=== PATIENT | female | born 1975 | race Caucasian/White ===

== ENCOUNTER 2018-04-10 08:33 | Day surgery (SDC) | payer OTHER ==
[~2018-04-10 08:33] MED LIST: ACETAMINOPHEN 325 MG TAB PO; MIDAZOLAM INJ 2 MG/2 ML VIAL (J2250) As Ordered; PHENYLEPHRINE HCL 10 % OPHTH. SOL 5ML OS; PROPARACAINE 0.5% OPHTH SOL 15ML OS; fentaNYL 100 MCG/2 ML INJECTION (J3010) As Ordered
[2018-04-10] MEDS: KETOROLAC 0.5% OPHTH SOLN OS (09:00)
[2018-04-10] MEDS ORDERED: TRIMETHOBENZAMIDE 300 MG CAP PO (09:00)
[2018-04-10] MEDS: CYCLOPENTOLATE 2% OPHTH SOLN 2ML BTL OS (09:04)
[2018-04-10] MEDS: PHENYLEPHRINE 2.5% OPHTH SOL 2ML OS (09:04)
[2018-04-10] MEDS: OFLOXACIN 0.3 % (OCUFLOX) OPTH SOL 5ML OS (09:04)
[2018-04-10] MEDS: TROPICAMIDE 1% OPHTH SOLN 2ML OS (09:04)
[2018-04-10] MEDS: LIDOCAINE 3.5 % 1ML OPHTH TOPICAL GEL OU (09:04)
[2018-04-10] MEDS: POVIDONE-IODINE 5% OPHTH PREP SOL 30ML As Ordered (09:24)
[2018-04-10] MEDS: HEALON DUET PRO(HEALON 10MG/ML 0.55ML & HEALON ENDOCOAT 30MG/ML 0.85ML) As Ordered (09:26)
[2018-04-10] MEDS: BALANCED SALT IRRIGATION SOLUTION 500ML BAG (FOR OR EYE MACHINE) As Ordered (09:26)
[2018-04-10] MEDS: CEFUROXIME 1MG/0.1ML INTRACAMERAL INJ As Ordered (09:26)
[2018-04-10] MEDS: LIDOCAINE 1% SDV 5 ML VIAL As Ordered (09:26)
[2018-04-10] MEDS ORDERED: ACETAMINOPHEN TAB 650MG DOSE (2X325MG) PO (10:00)
[2018-04-10] MEDS ORDERED: LR 1,000 ML IV (10:00)
[2018-04-10] MEDS: AcetaZOLAMIDE 500 MG ER CAP PO (10:09)
== END 2018-04-10 10:25 | disposition home or self-care (01) ==
LOC: M SDC 08:33
DX: H25.12 Age-related nuclear cataract, left eye (principal); K21.9 Gastro-esophageal reflux disease without esophagitis; I34.1 Nonrheumatic mitral (valve) prolapse; F17.200 Nicotine dependence, unspecified, uncomplicated; L30.9 Dermatitis, unspecified; L23.9 Allergic contact dermatitis, unspecified cause; Z88.1 Allergy status to other antibiotic agents; Z88.8 Allergy status to other drugs, medicaments and biological substances; Z79.899 Other long term (current) drug therapy; Z78.0 Asymptomatic menopausal state
CPT/HCPCS: 66984

== ENCOUNTER 2018-05-01 09:22 | Day surgery (SDC) | payer OTHER ==
[~2018-05-01] VITALS: Ht 154.9 cm; Wt 66.0 kg
[~2018-05-01 09:22] MED LIST changes: -ACETAMINOPHEN 325 MG TAB PO; +AMOX500C PO; +BALANCED SALT IRRIGATION SOLUTION 500ML BAG (FOR OR EYE MACHINE) As Ordered ONE; +CEFUROXIME 1MG/0.1ML INTRACAMERAL INJ As Ordered ONE; +CYCLOPENTOLATE 2% OPHTH SOLN 2ML BTL OD ONE; +HEALON DUET PRO(HEALON 10MG/ML 0.55ML & HEALON ENDOCOAT 30MG/ML 0.85ML) As Ordered ONE; +IBUP80TA PO; +LIDOCAINE 1% SDV 5 ML VIAL As Ordered ONE; +LIDOCAINE 3.5 % 1ML OPHTH TOPICAL GEL OU ONE; -MIDAZOLAM INJ 2 MG/2 ML VIAL (J2250) As Ordered; +OFLOXACIN 0.3 % (OCUFLOX) OPTH SOL 5ML OD ONE; +OMEP40CA2 PO; +PHENYLEPHRINE 2.5% OPHTH SOL 2ML OD ONE; +PHENYLEPHRINE HCL 10 % OPHTH. SOL 5ML OD PRN; -PHENYLEPHRINE HCL 10 % OPHTH. SOL 5ML OS; +POVIDONE-IODINE 5% OPHTH PREP SOL 30ML As Ordered ONE; -PROPARACAINE 0.5% OPHTH SOL 15ML OS; +SUDA1TAB3 PO; +TRIA1CR80 TOP; +TROPICAMIDE 1% OPHTH SOLN 2ML OD ONE; -fentaNYL 100 MCG/2 ML INJECTION (J3010) As Ordered
[2018-05-01] MEDS ORDERED: diphenhydrAMINE INJ 50MG/ML VIAL (J1200) IV ONE (11:00)
[2018-05-01 12:08] VITALS: BP 136/78
[2018-05-01] MEDS ORDERED: fentaNYL 100 MCG/2 ML INJECTION (J3010) As Ordered ONE (12:19)
[2018-05-01] MEDS ORDERED: MIDAZOLAM INJ 2 MG/2 ML VIAL (J2250) As Ordered ONE (12:19)
--- NOTE | 2018-05-02 09:41 | RO ---
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 PROCEDURE: Phacoemulsification and posterior chamber intraocular lens implantation and T-wave refractor analysis. The lens used was AU00T0, 22.5 Diopter. SURGEON: Nuvia Gomez MD ROOM SERVICE BELLHOP: ANESTHESIA: Topical with sedation. DESCRIPTION OF PROCEDURE: The patient was prepped and draped in usual fashion. A lid speculum was placed between the lids. The eye was fixated. A stab incision was made into the anterior chamber. 1% nonpreserved lidocaine was instilled, and viscoelastic was instilled. The eye was refixated. A 2.4 mm keratome was used to make a clear corneal temporal limbal incision. Capsulorrhexis was begun with a cystotome and carried out in circular fashion with capsulorrhexis forceps. Lens was hydrodissected and the phacoemulsification unit used to groove the nucleus in two meridians. The nucleus was cracked into four quadrants. Each quadrant was removed with the phacoemulsification unit. Any remaining cortex was removed with the irrigation and aspiration (I and A) unit. Healon was instilled into the eye, and the pressure was checked with a handheld tonometer. The ORA unit was placed over the eye and focused on the apex of the cornea. The patient was properly aligned, and measurements were made. The measurements then gave an appropriate lens power, which was used. The intraocular lens was placed into its jewel inserter and injected into the eye. Then manipulation was used to center the lens. Any remaining viscoelastic was removed with the I and A unit. The wound was hydrated, and Miochol and cefuroxime were instilled. Patient tolerated procedure well and went to recovery room in stable condition.
== END 2018-05-01 12:40 | disposition home or self-care (01) ==
LOC: M SDC 09:22
PROVIDERS: ATTEND Ophthalmology
DX: H25.041 Posterior subcapsular polar age-related cataract, right eye (principal); I34.8 Other nonrheumatic mitral valve disorders; Z88.1 Allergy status to other antibiotic agents; Z79.899 Other long term (current) drug therapy
CPT/HCPCS: 66984; J1200; J2250; J3010; V2632